=== PATIENT | female | born 1990 | race Caucasian/White ===

== ENCOUNTER 2017-12-24 08:06 | Outpatient (CLI) | payer OTHER ==
[~2017-12-24] VITALS: Ht 165.1 cm; Wt 65.9 kg
[~2017-12-24 08:06] MED LIST: CITRATE OF MAG296 ML PO; MICROGESTIN1 EAC1 PO; MIRALAX17 GM PO
[2017-12-24 08:23] VITALS: BP 108/62
[2017-12-24] MEDS ORDERED: PRENATAL TABLE1 EAC3 PO (08:32)
[2017-12-24 09:47] VITALS: BP 100/59
== END 2017-12-24 11:11 | disposition home or self-care (01) ==
LOC: LDRP-OP 08:06 → 2WEST 08:07
DX: O9A.212 Injury, poisoning and certain other consequences of external causes complicating pregnancy, second trimester (principal); S39.011A Strain of muscle, fascia and tendon of abdomen, initial encounter; W10.9XXA Fall (on) (from) unspecified stairs and steps, initial encounter; O99.342 Other mental disorders complicating pregnancy, second trimester; F41.9 Anxiety disorder, unspecified; Z3A.27 27 weeks gestation of pregnancy
CPT/HCPCS: 59025; G0378

== ENCOUNTER 2018-03-22 10:53 | Inpatient (IN) | payer OTHER ==
[2018-03-22] VITALS (14 sets, daily range): BP systolic 110–143; BP diastolic 56–84
[~2018-03-22] VITALS: Ht 165.1 cm; Wt 71.2 kg
[~2018-03-22 10:53] MED LIST changes: +PRENATAL TABLE1 EAC3 PO
[2018-03-22 14:01] LABS: COCAINE NEGATIVE (150 ng/mL); PHENCYCLIDINE NEGATIVE (25 ng/mL); THC CANNABINOIDS NEGATIVE (50 ng/mL)
[2018-03-22 14:02] LABS: AMPHETAMINE NEGATIVE (500 ng/mL); BARBITURATES NEGATIVE (200 ng/mL); BENZODIAZEPINES NEGATIVE (150 ng/mL); BUPRENORPHINE NEGATIVE (10 ng/mL); METHADONE NEGATIVE (200 ng/mL); METHAMPHETAMINE NEGATIVE (500 ng/mL); OPIATES (MORPHINE) NEGATIVE (100 ng/mL); OXYCODONE NEGATIVE (100 ng/mL); PROPOXYPHENE NEGATIVE (300 ng/mL); TRICYCLIC ANTIDEPRESSANTS NEGATIVE (300 ng/mL)
[2018-03-22 14:06] LABS: BASOPHIL (%) 0.2 % (0-1); EOSINOPHIL (%) 0.5 % (0-5); EOSINOPHIL COUNT 0.1 K/uL (0-0.3); HEMATOCRIT 29.4 % (36.0-46.0); IMMATURE GRANULOCYTE (%) 0.5 % (0.0-0.7); LYMPHOCYTE (%) 14.2 % (15-42); LYMPHOCYTE COUNT 1.8 K/uL (1.0-2.8); MCH 27.9 PG (29.0-34.0); MCV 82.1 FL (83-99); MONOCYTE COUNT 0.8 K/uL (0-0.8); NEUTROPHIL (%) 78.6 % (45-76); NEUTROPHIL COUNT 10.1 K/uL (1.8-6.4); PLATELET COUNT 174 K/uL (156-360); RBC DIS.WIDTH-CV 13.7 % (11.8-14.6); RBC DIS.WIDTH-SD 41.1 % (39-53); RED BLOOD COUNT 3.58 M/uL (3.80-5.20); WHITE BLOOD COUNT 12.9 K/uL (4.1-10.2)
[2018-03-22] MEDS ORDERED: MOTRIN800 MG PO (22:44)
[2018-03-23 00:13] VITALS: BP 114/73
[2018-03-23 01:57] VITALS: BP 120/75
[2018-03-23 07:44] VITALS: BP 131/82
[2018-03-23 14:55] VITALS: BP 131/85
[2018-03-23 23:35] VITALS: BP 116/75
[2018-03-24 07:00] VITALS: BP 115/79
[2018-03-24 11:47] VITALS: BP 130/72
[2018-03-24 12:41] VITALS: BP 111/57
== END 2018-03-24 14:00 | disposition home or self-care (01) | DRG 775 ==
LOC: LDRP-OP 10:53 → 2WEST 10:54 → LDRP-OP 04-25 11:23
PROVIDERS: Nurse Practitioner
DX: O70.0 First degree perineal laceration during delivery (principal); Z37.0 Single live birth; Z3A.39 39 weeks gestation of pregnancy
CPT/HCPCS: 85025; J7120